=== PATIENT | female | born 1955 | race African-American/Black ===

== ENCOUNTER 2017-05-26 01:06 | Emergency (ER) | payer MEDICAID ==
[~2017-05-26] VITALS: Ht 170.2 cm; Wt 85.0 kg
[~2017-05-26 01:06] MED LIST: AMLODIPINE; DIAZEPAM; NAPROXEN; RESPIRIDONE; SEROQUEL; TYLENOL WITH CODEINE
[2017-05-26] MEDS ORDERED: KETOROLAC 30MG/ML VIAL IV STA (02:09)
[2017-05-26] MEDS ORDERED: SODIUM CHLORIDE 0.9% 1,000 ML IV ONE (02:09)
[2017-05-26 02:37] LABS: INR 1.3; PROTHROMBIN TIME 13.4 sec (9.4-11.6)
[2017-05-26 03:08] LABS: HCG SCREEN NEGATIVE
[2017-05-26 03:12] LABS: BASOPHILS % 1.9 % (0.0-2.0); EOSINOPHILS % 0.4 % (0.0-5.0); HEMATOCRIT. 41.4 % (36.0-48.0); HEMOGLOBIN. 14.1 g/dL (12.0-16.0); LYMPHOCYTES % 51.7 % (20.0-50.0); MEAN CORPUSCULAR HEMOGLOBIN 32.1 pg (28.0-32.0); MEAN CORPUSCULAR VOLUME 94.3 fL (81.0-99.0); MEAN PLATELET VOLUME 9.1 fl (7.4-10.4); MONOCYTES % 3.9 % (2.0-8.0); NEUTROPHILS % 42.1 % (40.0-76.0); PLATELET 136 x1000/uL (130-400); RED BLOOD CELL COUNT 4.39 mill/uL (4.2-5.4); RED CELL DISTRIBUTION WIDTH 12.8 % (11.6-14.6)
[2017-05-26 03:27] LABS: CARBON DIOXIDE 25 mEq/L (21-32); CHLORIDE 101 mEq/L (98-107)
[2017-05-26 03:40] LABS: CLARITY URINE TURBID (CLEAR); COLOR URINE DARK YELLOW (YELLOW); KETONES URINE TRACE (NEGATIVE); LEUKOCYTE ESTERASE URINE 2+ (NEGATIVE); NITRITE URINE NEGATIVE (NEGATIVE); OCCULT BLOOD URINE 3+ (NEGATIVE); PROTEIN URINE 1+ (NEGATIVE)
[2017-05-26 06:25] VITALS: BP 155/88
[2017-05-26] MEDS ORDERED: IBUPROFEN 400MG TABLET PO ONE (06:30)
[2017-05-26] MEDS ORDERED: ACETAMINOPHEN 325MG TABLET PO ONE (06:30)
== END 2017-05-26 06:35 | disposition home or self-care (01) ==
LOC: ER 01:06
DX: J11.1 Influenza due to unidentified influenza virus with other respiratory manifestations (principal); I10 Essential (primary) hypertension; F12.10 Cannabis abuse, uncomplicated; R79.1 Abnormal coagulation profile
CPT/HCPCS: 36415; 71010; 80053; 81001; 84703; 85025; 85610; 87804; 96361; 96374; 99285; J1885; J7030; Z7610